=== PATIENT | male | born 1985 | race Caucasian/White ===

== ENCOUNTER 2017-07-18 09:32 | Emergency (ER) | payer OTHER ==
[2017-07-18 11:22] VITALS: BP 138/82
--- NOTE | 2017-07-18 12:26 | ED ---
Throat Pain/Nasal Congestion - HPI Summary HPI Summary: Patient presents to the ED with CC of left sided jaw tightness with radiation into the left side of the lip with tingling which is intermittent, lasting a few seconds to a minute and resolves spontaneously. He has a history of migraines and anxiety but has never had this happen before. The tightness occurs spontaneously without specificity to time of day or activity. Denies any history of jaw grinding or clenching his jaw. He states he has been under an unusual amount of stress recently and feels that may have contributed. He has never broken the jaw. He has been traveling a lot recently with ETOH use and feels he has been run down and stressed out. Denies nay other symptoms including SOB, chest pain, chest pressure, extremity weakness, trismus, lockjaw or the inability to swallow, chew or move around at the neck. He was recently seen by his PCP with CC of sore throat and enlarged LN, but PCP diagnosed him with a virus d/t monospot and strep negative and since that time LN are now within normal size. No associated drooling, stridor or muffled voice. Currently no symptoms. Last episode was this morning and lasted 3 minutes. No cardiac history. - History of Current Complaint Hx Obtained From: Patient Onset/Duration: Sudden Onset Severity: Mild - Epiglottits Risk Factors Epiglottis Risk Factors: Negative <Amada Mathews - Last Filed: 07/18/17 12:21> <Latha Oswald - Last Filed: 07/20/17 07:58> - History of Current Complaint Chief Complaint: EDGeneral Time Seen by Provider: 07/18/17 10:29 - Allergies/Home Medications Allergies/Adverse Reactions: Allergies Allergy/AdvReac Type Severity Reaction Status Date / Time No Known Allergies Allergy Verified 01/18/15 17:17 PMH/Surg Hx/FS Hx/Imm Hx Previously Healthy: Yes - Immunization History Hx Pertussis Vaccination: No Immunizations Up to Date: Unable to Obtain/Confirm Infectious Disease History: No Infectious Disease History: Denies: Traveled Outside the [place] in Last 30 Days - Social History Occupation: Employed Full-time Lives: With Family Alcohol Use: Occasionally Hx Substance Use: No Substance Use Type: Reports: None Hx Tobacco Use: Yes Smoking Status (MU): Former Smoker <Amada Mathews - Last Filed: 07/18/17 12:21> Review of Systems Constitutional: Negative Eyes: Negative ENT: Other - jaw pain Cardiovascular: Negative Respiratory: Negative Positive: no symptoms reported, see HPI Musculoskeletal: Negative Neurological: Negative Psychological: Normal All Other Systems Reviewed And Are Negative: Yes <Amada Mathews - Last Filed: 07/18/17 12:21> Physical Exam Triage Information Reviewed: Yes Vital Signs On Initial Exam: Initial Vitals Temp Pulse Resp BP Pulse Ox 98.3 F 72 20 144/86 100 07/18/17 09:36 07/18/17 09:36 07/18/17 09:36 07/18/17 09:36 07/18/17 09:36 Vital Signs Reviewed: Yes Appearance: Positive: Well-Appearing, Well-Nourished Skin: Positive: Warm, Skin Color Reflects Adequate Perfusion Head/Face: Positive: Normal Head/Face Inspection, Other - NO TMJ tenderness or temporal artery tenderness Eyes: Positive: EOMI, MAX, Conjunctiva Clear ENT: Positive: Hearing grossly normal, Pharynx normal, TMs normal, Other - no dental tenderness on palpation Neck: Positive: Supple, No Lymphadenopathy Respiratory/Lung Sounds: Positive: Clear to Auscultation, Breath Sounds Present Cardiovascular: Positive: RRR, Pulses are Symmetrical in both Upper and Lower Extremities Musculoskeletal: Positive: Strength/ROM Intact Neurological: Positive: Alert, Oriented to Person Place, Time, Speech Normal Psychiatric: Positive: Normal, Affect/Mood Appropriate AVPU Assessment: Alert - Sinai Coma Scale Best Eye Response: 4 - Spontaneous Best Motor Response: 6 - Obeys Commands Best Verbal Response: 5 - Oriented Coma Scale Total: 15 <Amada Mathews - Last Filed: 07/18/17 12:21> Vital Signs On Initial Exam: Initial Vitals Temp Pulse Resp BP Pulse Ox 98.3 F 72 20 144/86 100 07/18/17 09:36 07/18/17 09:36 07/18/17 09:36 07/18/17 09:36 07/18/17 09:36 <Latha Oswald - Last Filed: 07/20/17 07:58> Diagnostics - Vital Signs Vital Signs Temp Pulse Resp BP Pulse Ox 07/18/17 11:21 98.0 F 70 20 138/82 07/18/17 10:24 98 F 72 20 144/86 100 08/21/17 09:36 98.3 F 72 20 144/86 100 <Amada Mathews - Last Filed: 07/18/17 12:21> - Vital Signs Vital Signs Temp Pulse Resp BP Pulse Ox 07/18/17 11:21 98.0 F 70 20 138/82 07/18/17 10:24 98 F 72 20 144/86 100 07/18/17 09:36 98.3 F 72 20 144/86 100 <Latha Oswald - Last Filed: 07/20/17 07:58> EENT Course/Dx - Course Course Of Treatment: Left sided jaw pain. Patient denies history of cardiac issues. PMHx of anxiety and migraines. Discussed with patient possibilities of jaw tightness, tenderness and tingling in the lip. Most likely these symptoms are from anxiety. Unlikely trigeminal neuraglia d/t discrete pattern of tightness with no radiation to forehead. He has had a history of braces which have come off 8 months ago and has been using a retainer since that time. He has not stopped using the retainer causing a shift in the jaw, but this is still a possibilty of his symptoms. Despite no history of cardiac issues, chest pain or pressure, patient is requesting an EKG. He is encouraged to follow up with his dentist or ENT. If symptoms become worse, he will need to return for further evaluation. He appears to be well and stable and in NAD. Patient is given a short course of muscle relaxers only as needed if jaw tightness is not relieved or resolved spontaneously. Flexeril x 5 days max given. Medications reviewed with patient. - Differential Diagnoses Differential Diagnoses: Odontogenic Pain, Pain of Unknown Etiology, Trigeminal Neuralgia <Amada Mathews - Last Filed: 07/18/17 12:21> <Latha Oswald - Last Filed: 07/20/17 07:58> - Diagnoses Provider Diagnoses: Jaw pain Discharge <Amada Mathews - Last Filed: 07/18/17 12:21> <Latha Oswald - Last Filed: 07/20/17 07:58> - Discharge Plan Condition: Stable Disposition: HOME Prescriptions: Cyclobenzaprine TAB* [Flexeril TAB*] 10 mg PO BID PRN #10 tab MDD 2 PRN Reason: Pain - Mild Patient Education Materials: Muscle Spasm (ED) Referrals: Non Staff,Doctor [Primary Care Provider] - Additional Instructions: Follow up with your dentist. I have given you information for ENT if symptoms persist You may always return to the ED if symptoms worsen. Attestation Statement User Type: Provider - I was available for consult. This patient was seen by the GISELLE. The patient was not presented to, seen by, or examined by me. -Daniel <Latha Oswald - Last Filed: 07/20/17 07:58>
== END 2017-07-18 11:21 | disposition home or self-care (01) ==
LOC: ED 09:32
DX: R68.84 Jaw pain (principal)
CPT/HCPCS: 93005; 99282

== ENCOUNTER 2017-11-26 11:37 | Emergency (ER) | payer OTHER ==
[2017-11-26 13:18] VITALS: BP 119/69
--- NOTE | 2017-12-01 10:56 | ED ---
Arthur Davis Abhishek, scribed for Glenn Ramirez MD on 11/26/17 at 1221 . Allergic Reaction/Systemic - HPI Summary HPI Summary: This patient is a 32 year old M presenting to [facility] accompanied by with a chief complaint of rash since this morning (0900) 11/26/17. Pt states he has Flu for the past few days; and has taken Equate night time cold and flu symptoms (2199), Tylenol, and ibuprofen (1999). According to patient, he woke up with a rash on his arms and chest. The patient rates the pain 0/10 in severity. Symptoms aggravated by nothing. Symptoms alleviated by nothing. Patient reports nausea, diarrhea (1 time), chills, and hot sensation in his face. Patient denies pruritus, and current fever (prior fever was few days ago) . Pt reportedly does not take any other medicine. Other medication reviewed. Allergies reviewed and no known allergies reported. - History of Current Complaint Chief Complaint: EDAllergicReaction Hx Obtained From: Patient, Family/Surface Supervisor - Onset/Duration: Sudden Onset, Still Present Timing: Constant, Lasting Hours - since 0900 Pain Intensity: 0 Pain Scale Used: 0-10 Numeric Location: Discrete @ - arms and chest Character: Hives Aggravating Factor(s): Nothing Alleviating Factor(s): Nothing Associated Signs And Symptoms: Positive: Nausea, Rash - Related Hx Possible Reaction To: Unknown - Allergies/Home Medications Allergies/Adverse Reactions: Allergies Allergy/AdvReac Type Severity Reaction Status Date / Time No Known Allergies Allergy Verified 01/18/15 17:17 PMH/Surg Hx/FS Hx/Imm Hx Endocrine/Hematology History: Denies: Hx Diabetes Cardiovascular History: Denies: Other Cardiovascular Problems/Disorders - Cancer History Cancer Type, Location and Year: No Cancer reported Infectious Disease History: No Infectious Disease History: Denies: Traveled Outside the [place] in Last 30 Days - Family History Known Family History: Positive: Hypertension, Diabetes - Social History Lives: With Family Alcohol Use: Occasionally Hx Substance Use: No Substance Use Type: Reports: None Hx Tobacco Use: Yes Smoking Status (MU): Current Some Day Smoker Review of Systems Positive: Chills, Other - "hot sensation" on his face. Negative: Fever Eyes: Negative Cardiovascular: Negative Respiratory: Negative Positive: Diarrhea - 1 time, Nausea Genitourinary: Negative Skin: Other - Negative pruritus Positive: Rash - arms and chest Neurological: Negative Psychological: Normal All Other Systems Reviewed And Are Negative: Yes Physical Exam - Summary Physical Exam Summary: Constitutional: Well-developed, Well-nourished, Alert. (-) Distressed Skin: Very fine, red blanchable rash on the face and the upper extremities HENT: Normocephalic; Atraumatic Eyes: Conjunctiva normal Neck: Musculoskeletal ROM normal neck. (-) JVD, (-) Stridor, (-) Tracheal deviation Cardio: Rhythm regular, rate normal, Heart sounds normal; Intact distal pulses; The pedal pulses are 2+ and symmetric. Radial pulses are 2+ and symmetric. (-) Murmur Pulmonary/Chest wall: Effort normal. (-) Respiratory distress, (-) Wheezes, (-) Rales Abd: Soft, (-) Tenderness, (-) Distension, (-) Guarding, (-) Rebound Musculoskeletal: (-) Edema Lymph: (-) Cervical adenopathy Neuro: Alert, Oriented x3 Psych: Mood and affect Normal Triage Information Reviewed: Yes Vital Signs On Initial Exam: Initial Vitals Temp Pulse Resp BP Pulse Ox 97.5 F 78 20 138/90 100 11/26/17 11:39 11/26/17 11:39 11/26/17 11:39 11/26/17 11:39 11/26/17 11:39 Vital Signs Reviewed: Yes - Marvell Coma Scale Coma Scale Total: 15 Diagnostics - Vital Signs Vital Signs Temp Pulse Resp BP Pulse Ox 11/26/17 11:39 97.5 F 78 20 138/90 100 - Laboratory Lab Statement: Any lab studies that have been ordered have been reviewed, and results considered in the medical decision making process. Allergic Reaction Course/Dx - Course Course Of Treatment: This patient is a 32 year old M presenting to [facility] accompanied by with a chief complaint of rash since this morning (0900) . Pt states he has Flu for the past few days; and has taken Equate night time cold and flu symptoms (2199), Tylenol, and ibuprofen (1999). According to patient, he woke up with a rash on his arms and chest. Patient reports nausea , diarrhea (1 time), chills, and hot sensation on his face. Patient denies pruritus, and fever (no current fever; previous fever few days ago). Pt reportedly does not take any other medicine. Other medication reviewed. Allergies reviewed and no known allergies reported. Pt will be discharged home with the dx of viral exanthem. Pt is recommended to avoid cold and flu preparations as well as to visit PCP within 2 to 3 days. We also recommend loratadine 10 mg once a day (over the counter), and Benadryl as needed. The patient is agreeable with this plan. - Diagnoses Provider Diagnoses: Viral exanthem Discharge - Discharge Plan Condition: Stable Disposition: HOME Patient Education Materials: Viral Exanthem (ED) Referrals: Non Staff,Doctor [Primary Care Provider] - (Visit Primary care physician within 3 days.) Additional Instructions: We recommend patient takes loratadine 10 mg once a day (over the counter), and Benadryl as needed. Patient should also avoid cold and flu preparations. RETURN TO THE EMERGENCY DEPARTMENT FOR CHANGING OR WORSENING SYMPTOMS The documentation as recorded by the Arthur mendez Abhishek accurately reflects the service I personally performed and the decisions made by , Glenn Ramirez MD.
== END 2017-11-26 13:18 | disposition home or self-care (01) ==
LOC: ED 11:37
DX: B09 Unspecified viral infection characterized by skin and mucous membrane lesions (principal); F17.200 Nicotine dependence, unspecified, uncomplicated
CPT/HCPCS: 99282